=== PATIENT | female | born 1980 | race Caucasian/White ===

== ENCOUNTER → 2023-12-17 | Outpatient (CLI) | payer MEDICARE, OTHER ==
--- NOTE | 2023-12-17 16:56 | US ---
EXAMINATION TYPE: US pelvic complete DATE OF EXAM: 12/17/2023 COMPARISON: NONE CLINICAL INDICATION: Female, 43 years old with history of E28.39 OTHER PRIMARY OVARIAN FAILURE; Pt st ates her labs have shown she is in menopause. . TECHNIQUE: . Transabdominal sonographic images of the pelvis were acquired. Date of LMP: 5 years ago EXAM MEASUREMENTS: Uterus: 6.8 x 3.0 x 3.1 cm Endometrial Stripe: 0.7 cm Right Ovary: 2.8 x 2.0 x 2.3 cm Left Ovary: 2.2 x 1.5 x 1.5 cm 1. Uterus: Anteverted wnl 2. Endometrium: wnl 3. Right Ovary: wnl 4. Left Ovary: wnl 5. Bilateral Adnexa: wnl 6. Posterior cul-de-sac: wnl IMPRESSION: 1. No evidence for acute process. 2. Endometrium within normal limits for thickness.
== END | disposition home or self-care (01) ==
LOC: RADUSWWP 16:15
PROVIDERS: ATTEND Family Medicine
DX: E28.39 Other primary ovarian failure (principal); Z78.0 Asymptomatic menopausal state
CPT/HCPCS: 76856

== ENCOUNTER → 2024-02-02 | Outpatient (CLI) | payer MEDICARE ==
[2024-02-02 19:23] LABS: T4, Free (Free Thyroxine) 1.44 ng/dL (0.80-1.80)
== END | disposition home or self-care (01) ==
LOC: LABWHC1 11:43
PROVIDERS: ATTEND Internal Medicine Interventional Cardiology
DX: E03.9 Hypothyroidism, unspecified (principal)
CPT/HCPCS: 36415; 84439; 84443